=== PATIENT | female | born 1985 | race Caucasian/White ===

== ENCOUNTER 2018-09-05 09:59 | Emergency (ER) | payer BC ==
[2018-09-05 10:18] VITALS: BP 123/86
--- NOTE | 2018-09-05 10:31 | UC ---
Throat Pain/Nasal Norberto HPI - HPI Summary HPI Summary: sore throat for one week---some right ear pain, breast feeding- - History of Current Complaint Chief Complaint: UCGeneralIllness Stated Complaint: ST,RT EAR COMPLAINT Time Seen by Provider: 09/05/18 10:07 Hx Obtained From: Patient ?: No Onset/Duration: Lasting Weeks - 1 Pain Intensity: 7 Pain Scale Used: 0-10 Numeric Cough: None Associated Signs & Symptoms: Positive: Nasal Discharge - Allergies/Home Medications Allergies/Adverse Reactions: Allergies Allergy/AdvReac Type Severity Reaction Status Date / Time No Known Allergies Allergy Verified 09/05/18 10:13 Home Medications: Home Medications Ibuprofen TAB* [Motrin TAB* 400 MG] 400 mg PO Q6H PRN 09/05/18 [History Confirmed 09/05/18] Pnv No.95/Ferrous Fum/Folic AC [ Multivitamin Tablet] 1 each PO DAILY [History Confirmed 09/05/18] PMH/Surg Hx/FS Hx/Imm Hx Previously Healthy: Yes - Surgical History Surgical History: Yes Surgery Procedure, Year, and Place: tonsillectomy. D&C. wisdom teeth - Family History Known Family History: Positive: None - Social History Occupation: Works From/At Home Lives: With Family Alcohol Use: Occasionally Substance Use Type: None Smoking Status (MU): Never Smoked Tobacco Review of Systems All Other Systems Reviewed And Are Negative: Yes Constitutional: Positive: Negative Skin: Positive: Negative Eyes: Positive: Negative ENT: Positive: Sore Throat, Ear Ache - right Respiratory: Positive: Negative Cardiovascular: Positive: Negative Gastrointestinal: Positive: Negative Genitourinary: Positive: Negative Motor: Positive: Negative Neurovascular: Positive: Negative Musculoskeletal: Positive: Negative Neurological: Positive: Negative Psychological: Positive: Negative Is Patient Immunocompromised?: No Physical Exam Triage Information Reviewed: Yes Appearance: Well-Appearing, Well-Nourished, Pain Distress Vital Signs: Initial Vital Signs Temp 97.4 F 09/05/18 10:13 Pulse 67 09/05/18 10:13 Resp 16 09/05/18 10:13 BP 123/86 09/05/18 10:13 Pulse Ox 99 09/05/18 10:13 Vital Signs Reviewed: Yes Eye Exam: Normal Eyes: Positive: Conjunctiva Clear ENT Exam: Normal ENT: Positive: Normal ENT inspection, Hearing grossly normal, Pharynx normal, TMs normal - l, TM bulging - r, TM red - r. Negative: Trismus, Muffled voice, Hoarse voice, Dental tenderness, Sinus tenderness Dental Exam: Normal Neck exam: Normal Neck: Positive: Supple, Nontender Respiratory Exam: Normal Respiratory: Positive: Chest non-tender, Lungs clear, Normal breath sounds, No respiratory distress, No accessory muscle use Cardiovascular Exam: Normal Cardiovascular: Positive: RRR, No Murmur, Pulses Normal, Brisk Capillary Refill Musculoskeletal Exam: Normal Musculoskeletal: Positive: Strength Intact, ROM Intact, No Edema Neurological Exam: Normal Neurological: Positive: Alert, Muscle Tone Normal Psychological Exam: Normal Psychological: Positive: Normal Response To Family Skin Exam: Normal Diagnostics - Laboratory Lab Results: rst (-) Throat Pain/Nasal Course/Dx - Course Course Of Treatment: Amoxicillin, tylenol, ibuprofen, warm compress follow with pcp prn---breat milk/ feeding precautions provided - Differential Dx/Diagnosis Provider Diagnosis: Right acute otitis media Discharge - Sign-Out/Discharge Documenting (check all that apply): Patient Departure All imaging exams completed and their final reports reviewed: No Studies - Discharge Plan Condition: Stable Disposition: HOME Prescriptions: Amoxicillin PO (*) [Amoxicillin 875 MG (*)] 875 mg PO BID #20 tab Patient Education Materials: Ear Infection (ED), Warm Compress or Soak (ED) Referrals: SAMIRA Nj [Medical Doctor] - If Needed - Billing Disposition and Condition Condition: STABLE Disposition: Home - Attestation Statements Provider Attestation: I was available for consult. This patient was seen by the DENNY. The patient was not presented to , seen by or examined by nm -Greta Jarrell MD
== END 2018-09-05 10:42 | disposition home or self-care (01) ==
LOC: UCCORT 09:59
DX: H66.91 Otitis media, unspecified, right ear (principal)
CPT/HCPCS: 87651; 99202; G0463